=== PATIENT | male | born 1975 | race American Indian/Alaskan Native ===

== ENCOUNTER 2017-08-28 11:32 | Emergency (ER) | payer OTHER ==
--- NOTE | 2017-08-28 12:09 | Emergency Department Report ---
Chief Complaint: GI Bleed Stated Complaint: BLOOD IN STOOL Time Seen by Provider: 08/28/17 11:58 - HPI History of Present Illness: Bright red blood on toilet paper and in toilet bowl today history of intermittent similar no chest pain no abdominal pain no dizziness or syncope. Does admit to occasional alcohol binge denies any epigastric pain denies any black stool ,no lightheadneess - Exam Vital Signs: Vital Signs 08/28/17 11:37 Temperature 98.6 F Pulse Rate 81 Respiratory 18 Rate Blood Pressure 164/75 O2 Sat by Pulse 100 Oximetry Physical Exam: Alert and oriented 3 and nontoxic , nad, abdomen is soft nontender without rebound or guarding blood pressure slightly elevated heart rate normal. MSE screening note: Focused history and physical exam performed. Due to findings the following was ordered: Laboratory studies patient a ed for further evaluation ED Disposition for MSE Condition: Stable
[2017-08-28 12:35] LABS: Basophils % (Auto) 0.4 % (0.0-1.8); Eosinophils % (Auto) 0.8 % (0.0-4.3); Hematocrit 50.1 % (35.5-45.6); Hemoglobin 15.9 gm/dl (11.8-15.2); Mean Corpuscular HGB Conc 32 % (32-34); Mean Corpuscular Hemoglobin 27 pg (28-32); Mean Corpuscular Volume 84 fl (84-94); Platelet Count 210 K/mm3 (140-440); Red Blood Count 5.96 M/mm3 (3.65-5.03); Red Cell Distribution Width 14.4 % (13.2-15.2); White Blood Count 6.5 K/mm3 (4.5-11.0)
[2017-08-28 17:22] VITALS: BP 129/83
--- NOTE | 2017-08-28 17:35 | Emergency Department Report ---
HPI - General Chief Complaint: GI Bleed Time Seen by Provider: 08/28/17 11:58 - HPI HPI: Room 25 The patient is a 42-year-old male presenting with a chief complaint of hematochezia. The patient states this morning he got up to have a bowel movement and noticed bright red blood in the bowl. This occurred at 08:36. Patient denied rectal pain, abdominal pain or pain of any type. The patient states approximately 1.5 hours later he had a second bowel movement and there were still blood but significantly less than the first time. Patient denies nausea or vomiting. Patient denies any history of melena or unexplained weight loss. The patient states when he had a second bowel movement he observed normal -appearing stool come out first and then blood afterwards. Location: Gastrointestinal system Duration: [See above] Quality: Painless Severity: Moderate Modifying factors: [see above] Context: [see above] Mode of transportation: [not driving] ED Past Medical Hx - Past Medical History Previous Medical History?: No - Surgical History Past Surgical History?: No - Family History Family history: no significant - Social History Smoking Status: Never Smoker Substance Use Type: None (denies illicit drug use), Alcohol (moderate) - Medications Home Medications: Home Medications Medication Instructions Recorded Confirmed Last Taken Type HYDROcodone/APAP 5-325 [Satin 1 each PO Q6HR PRN #12 tablet 09/02/13 Unknown Rx 5/325 mg] Cephalexin [Keflex] 250 mg PO Q6H #20 capsule 09/03/13 Unknown Rx Docusate Sodium [Colace] 100 mg PO BID PRN #30 capsule 08/28/17 Unknown Rx Hydrocortisone [Anucort-HC SUPPOS] 25 mg RC BID #10 supp.rect 08/28/17 Unknown Rx ED Review of Systems ROS: Stated complaint: BLOOD IN STOOL Other details as noted in HPI Eyes: denies: eye pain ENT: denies: throat pain Cardiovascular: denies: chest pain Endocrine: denies: unexplained weight loss Gastrointestinal: hematochezia. denies: abdominal pain, nausea, vomiting, melena Genitourinary: denies: dysuria Musculoskeletal: denies: back pain Neurological: denies: headache Physical Exam - Physical Exam Vital Signs: Vital Signs 08/28/17 08/28/17 08/28/17 11:37 16:29 16:30 Temperature 98.6 F Pulse Rate 81 68 Pulse Rate [ Sitting] Respiratory 18 15 21 Rate Blood Pressure 164/75 127/75 Blood Pressure [Right] Blood Pressure [Sitting] O2 Sat by Pulse 100 Oximetry 08/28/17 08/28/17 08/28/17 16:35 16:40 16:45 Temperature 98.5 F Pulse Rate 67 69 Pulse Rate [ 72 Sitting] Respiratory 18 20 Rate Blood Pressure 138/76 Blood Pressure 127/75 [Right] Blood Pressure 138/88 [Sitting] O2 Sat by Pulse 98 Oximetry 08/28/17 08/28/17 17:00 17:15 Temperature Pulse Rate 64 66 Pulse Rate [ Sitting] Respiratory 14 18 Rate Blood Pressure 129/83 129/83 Blood Pressure [Right] Blood Pressure [Sitting] O2 Sat by Pulse Oximetry Physical Exam: GENERAL: The patient is well-developed well-nourished male lying on stretcher not appearing to be in acute distress. [] HEENT: Normocephalic. Atraumatic. Extraocular motions are intact. Patient has moist mucous membranes. NECK: Supple. Trachea midline CHEST/LUNGS: Clear to auscultation. There is no respiratory distress noted. HEART/CARDIOVASCULAR: Regular. There is no tachycardia. There is no gallop rub or murmur. ABDOMEN: Abdomen is soft, nontender. Patient has normal bowel sounds. There is no abdominal distention. SKIN: There is no rash. There is no edema. There is no diaphoresis. NEURO: The patient is awake, alert, and oriented. The patient is cooperative. The patient has normal speech MUSCULOSKELETAL: There is no evidence of acute injury. RECTAL: Fullness at 6 o'clock position. Guaiac negative. No external hemorrhoids seen ED Course Vital Signs 08/28/17 08/28/17 08/28/17 11:37 16:29 16:30 Temperature 98.6 F Pulse Rate 81 68 Pulse Rate [ Sitting] Respiratory 18 15 21 Rate Blood Pressure 164/75 127/75 Blood Pressure [Right] Blood Pressure [Sitting] O2 Sat by Pulse 100 Oximetry 08/28/17 08/28/17 08/28/17 16:35 16:40 16:45 Temperature 98.5 F Pulse Rate 67 69 Pulse Rate [ 72 Sitting] Respiratory 18 20 Rate Blood Pressure 138/76 Blood Pressure 127/75 [Right] Blood Pressure 138/88 [Sitting] O2 Sat by Pulse 98 Oximetry 08/28/17 08/28/17 17:00 17:15 Temperature Pulse Rate 64 66 Pulse Rate [ Sitting] Respiratory 14 18 Rate Blood Pressure 129/83 129/83 Blood Pressure [Right] Blood Pressure [Sitting] O2 Sat by Pulse Oximetry ED Medical Decision Making - Lab Data Result diagrams: 08/28/17 12:21 Laboratory Tests 08/28/17 12:21 WBC 6.5 RBC 5.96 H Hgb 15.9 H Hct 50.1 H MCV 84 MCH 27 L MCHC 32 RDW 14.4 Plt Count 210 Lymph % (Auto) 22.8 [place] % (Auto) 8.0 H Eos % (Auto) 0.8 Baso % (Auto) 0.4 Lymph # 1.5 [place] # 0.5 Eos # 0.1 Baso # 0.0 Seg Neutrophils % 68.0 Seg Neutrophils # 4.4 - Differential Diagnosis hemorrhoid, colon mass Critical care attestation.: If time is entered above; I have spent that time in minutes in the direct care of this critically ill patient, excluding procedure time. ED Disposition Clinical Impression: Rectal bleeding Disposition: DC-01 TO HOME OR SELFCARE Is pt being admited?: No Does the pt Need Aspirin: No Condition: Stable Instructions: Rectal Bleeding (ED) Additional Instructions: Return to the emergency department immediately should you develop worsening symptoms, fever, inability to tolerate food or liquid or any other concerns. Prescriptions: Docusate Sodium [Colace] 100 mg PO BID PRN #30 capsule PRN Reason: Constipation Hydrocortisone [Anucort-HC SUPPOS] 25 mg RC BID #10 supp.rect Referrals: [facility] [Outside] - 3-5 Days YONNY DUARTE MD [Primary Care Provider] - 3-5 Days (Dr. Coleman is a primary physician. Please follow up with him for further evaluation) HUSSEIN KIRBY MD [Staff Physician] - [facility] (Dr. Kirby is a hypnotherapist. Please follow-up with him for further evaluation) Forms: Accompanied Note Time of Disposition: 17:58
== END 2017-08-28 18:19 | disposition home or self-care (01) ==
LOC: ED 11:32
DX: K62.5 Hemorrhage of anus and rectum (principal)
CPT/HCPCS: 36415; 82271; 85025; 99283